=== PATIENT | male | born 1985 | race African-American/Black ===

== ENCOUNTER 2019-08-28 10:52 | Emergency (ER) | payer MEDICAID, OTHER ==
[~2019-08-28] VITALS: Ht 177.8 cm; Wt 113.0 kg
[2019-08-28 11:27] VITALS: BP 195/113
== END 2019-08-28 14:10 | disposition home or self-care (01) ==
LOC: ER 10:52
DX: H10.022 Other mucopurulent conjunctivitis, left eye (principal); J45.909 Unspecified asthma, uncomplicated
CPT/HCPCS: 99283

== ENCOUNTER 2023-07-06 08:51 | Emergency (ER) | payer OTHER ==
[~2023-07-06] VITALS: Ht 188 cm; Wt 114.0 kg
[2023-07-06 08:57] VITALS: TEMP 99.7; O2SAT 100
[2023-07-06] MEDS ORDERED: GABAPENTIN (08:57)
[2023-07-06] MEDS ORDERED: OXYCODONE HCL/ACETAMINOPHEN 5/325MG TABLET PO ONE (09:45)
[2023-07-06 10:15] LABS: CLARITY URINE CLOUDY (CLEAR); COLOR URINE YELLOW (YELLOW); GLUCOSE URINE NEGATIVE (NEGATIVE); KETONES URINE NEGATIVE (NEGATIVE); LEUKOCYTE ESTERASE URINE 3+ (NEGATIVE); NITRITE URINE NEGATIVE (NEGATIVE); OCCULT BLOOD URINE 3+ (NEGATIVE); PH URINE 8.5 (4.5-8.0); PROTEIN URINE 1+ (NEGATIVE); SPECIFIC GRAVITY URINE 1.012 (1.005-1.030)
[2023-07-06] MEDS ORDERED: CEFP200T13 MT (10:36)
[2023-07-06 10:39] LABS: BACTERIA URINE 2+; RBC URINE 25-50 /hpf (0-2); SQUAMOUS EPITHELIAL CELL URINE NONE SEEN /lpf (RARE/1+); WBC URINE TNTC /hpf (0-2); YEAST URINE NONE SEEN
[2023-07-06 12:30] VITALS: BP 122/70; PULSE 89; RESP 16
== END 2023-07-06 12:49 | disposition home or self-care (01) ==
LOC: ER 08:51
DX: N39.0 Urinary tract infection, site not specified (principal)
CPT/HCPCS: 81003; 87077; 87186; 99283

== ENCOUNTER 2025-02-17 10:30 | Emergency (ER) | payer MEDICAID, OTHER ==
[~2025-02-17] VITALS: Ht 182.9 cm; Wt 91.0 kg
[~2025-02-17 10:30] MED LIST: CEFP200T13 MT; GABAPENTIN
[2025-02-17 10:32] VITALS: O2SAT 99
[2025-02-17] MEDS: SODIUM CHLORIDE 0.9% (SEPSIS BOLUS) IV ONE (10:58)
[2025-02-17 11:21] LABS: BASOPHILS % 0.5 % (0.0-2.0); HEMATOCRIT. 38.3 % (42.0-52.0); HEMOGLOBIN. 12.7 g/dL (14.0-18.0); LYMPHOCYTES % 9.5 % (20.0-50.0); MEAN CORPUSCULAR HGB CONC 33.2 g/dL (31.0-37.0); MEAN CORPUSCULAR VOLUME 84.4 fL (80.0-94.0); MEAN PLATELET VOLUME 8.3 fl (7.4-10.4); MONOCYTES % 11.3 % (2.0-8.0); NEUTROPHILS % 77.7 % (40.0-76.0); PLATELET 196 x1000/uL (130-400); RED BLOOD CELL COUNT 4.54 mill/uL (4.7-6.1); RED CELL DISTRIBUTION WIDTH 16.3 % (11.6-14.6)
[2025-02-17 11:28] LABS: CHLORIDE 106 mEq/L (98-107); POTASSIUM 4.3 mEq/L (3.5-5.1); SODIUM 136 mEq/L (136-145)
[2025-02-17 11:31] LABS: CARBON DIOXIDE 26 mEq/L (21-32)
[2025-02-17 11:37] LABS: GLUCOSE 93 mg/dL (70-105); UREA NITROGEN BLOOD 10 mg/dL (9-23)
[2025-02-17 11:38] LABS: ALANINE AMINOTRANSFERASE 16 IU/L (10-49)
[2025-02-17 11:39] LABS: ALBUMIN 4.1 g/dL (3.2-4.8); ASPARTATE AMINOTRANSFERASE 19 IU/L (<34); BILIRUBIN DIRECT 0.2 mg/dL (<=3.0); BILIRUBIN TOTAL 0.5 mg/dL (0.1-1.0); PROTEIN TOTAL 7.8 g/dL (6.0-8.3)
[2025-02-17 11:56] LABS: TROPONIN I HIGH SENSITIVITY < 4 ng/L (3.0-53)
[2025-02-17 12:56] LABS: CLARITY URINE CLOUDY (CLEAR); COLOR URINE ORANGE (YELLOW); GLUCOSE URINE NEGATIVE (NEGATIVE); KETONES URINE NEGATIVE (NEGATIVE); LEUKOCYTE ESTERASE URINE 3+ (NEGATIVE); NITRITE URINE NEGATIVE (NEGATIVE); OCCULT BLOOD URINE 3+ (NEGATIVE); PH URINE 7.5 (4.5-8.0); PROTEIN URINE TRACE (NEGATIVE); SPECIFIC GRAVITY URINE 1.007 (1.005-1.030); UROBILINOGEN URINE 0.2 E.U./dL (0.2-1.0)
[2025-02-17 13:06] LABS: BACTERIA URINE 3+; RBC URINE 50-100 /hpf (0-2); SQUAMOUS EPITHELIAL CELL URINE 1+ /lpf (RARE/1+); WBC URINE TNTC /hpf (0-2); YEAST URINE NONE SEEN
[2025-02-17] MEDS: CEFTRIAXONE 1GM/50ML 50 ML IV ONE (15:37)
[2025-02-17 15:56] VITALS: BP 143/93; PULSE 109; RESP 20; TEMP 37.1; O2SAT 99
== END 2025-02-17 16:30 | disposition short-term general hospital (02) ==
LOC: ER 10:34
DX: N30.00 Acute cystitis without hematuria (principal); G35 Multiple sclerosis; J45.909 Unspecified asthma, uncomplicated; Z79.899 Other long term (current) drug therapy; Z79.60 Long term (current) use of unspecified immunomodulators and immunosuppressants
CPT/HCPCS: 80076; 80048; 81003; 83605; 85025; 87040; 87086; 87186; 84484; 87077; 36415; 84145; 71045; 93005; 96361; 96365; 99285; J0696; J7030; Z7610 ×2; A4606

== ENCOUNTER 2025-07-15 20:08 | Emergency (ER) | payer MEDICAID ==
[~2025-07-15] VITALS: Ht 177.8 cm; Wt 123.0 kg
[~2025-07-15 20:08] MED LIST changes: +BACL-141 PO; -CEFP200T13 MT; +GABA-1180 PO; -GABAPENTIN; +IRBE1TAB43 MT; +SULF1TAB48 MT; +TAMS-54 PO
[2025-07-15 20:11] VITALS: O2SAT 100
[2025-07-15] MEDS: SODIUM CHLORIDE 0.9% (SEPSIS BOLUS) IV ONE (20:58)
[2025-07-15] MEDS: MORPHINE SULFATE 4 MG/ML INJ (FOR IV/IM USE) IV ONE (21:04)
[2025-07-15] MEDS: PIPERACILLIN/TAZO 3.375G/50ML 50 ML IV ONE (21:08)
[2025-07-15 21:17] LABS: BASOPHILS % 1.1 % (0.0-2.0); EOSINOPHILS % 9.1 % (0.0-5.0); HEMATOCRIT. 30.4 % (42.0-52.0); HEMOGLOBIN. 9.8 g/dL (14.0-18.0); LYMPHOCYTES % 20.1 % (20.0-50.0); MEAN PLATELET VOLUME 7.1 fl (7.4-10.4); MONOCYTES % 14.3 % (2.0-8.0); NEUTROPHILS % 55.4 % (40.0-76.0); PLATELET 320 x1000/uL (130-400); RED BLOOD CELL COUNT 3.80 mill/uL (4.7-6.1); RED CELL DISTRIBUTION WIDTH 18.6 % (11.6-14.6)
[2025-07-15 21:27] LABS: INR 1.0
[2025-07-15 21:36] LABS: CREATININE 0.9 mg/dL (0.6-1.3)
[2025-07-15 21:37] LABS: UREA NITROGEN BLOOD 9 mg/dL (9-23)
[2025-07-15 21:39] LABS: ASPARTATE AMINOTRANSFERASE 19 IU/L (<34); BILIRUBIN DIRECT < 0.1 mg/dL (<=3.0); BILIRUBIN TOTAL 0.2 mg/dL (0.1-1.0); PROTEIN TOTAL 7.3 g/dL (6.0-8.3)
[2025-07-15] MEDS: VANCOMYCIN 1G PREMIX 200 ML IV ONE (21:53)
[2025-07-15] MEDS ORDERED: ACETAMINOPHEN 325MG TABLET PO PRN (22:15)
[2025-07-15] MEDS ORDERED: SODIUM CHLORIDE 0.9% 1,000 ML IV SCH (22:15)
[2025-07-15] MEDS ORDERED: CLONIDINE 0.1MG TABLET PO PRN (22:15)
[2025-07-15] MEDS ORDERED: MORPHINE SULFATE 4 MG/ML INJ (FOR IV/IM USE) IV PRN (22:15)
[2025-07-15] MEDS ORDERED: ZOLPIDEM TARTRATE 5MG TABLET PO PRN (22:15)
[2025-07-15] MEDS ORDERED: ONDANSETRON HCL 4MG/2ML INJ IV PRN (22:15)
[2025-07-15] MEDS ORDERED: MAGNESIUM/ALUMINUM HYDROXIDE/SIMETHICONE 30ML UDC PO PRN (22:15)
[2025-07-15] MEDS ORDERED: HYDROCODONE/ACETAMINOPHEN 5/325MG TABLET PO PRN (22:15)
[2025-07-15 22:39] VITALS: TEMP 37.2
[2025-07-15] MEDS: VANCOMYCIN 1G PREMIX 200 ML IV NR (23:44)
[2025-07-16 00:17] VITALS: BP 143/87; PULSE 113; RESP 14; O2SAT 98
[2025-07-16 00:38] LABS: CLARITY URINE TURBID (CLEAR); COLOR URINE YELLOW (YELLOW); GLUCOSE URINE NEGATIVE (NEGATIVE); KETONES URINE NEGATIVE (NEGATIVE); LEUKOCYTE ESTERASE URINE NEGATIVE (NEGATIVE); NITRITE URINE NEGATIVE (NEGATIVE); OCCULT BLOOD URINE NEGATIVE (NEGATIVE); PH URINE 6.0 (4.5-8.0); PROTEIN URINE NEGATIVE (NEGATIVE); SPECIFIC GRAVITY URINE 1.031 (1.005-1.030); UROBILINOGEN URINE 0.2 E.U./dL (0.2-1.0)
[2025-07-16 00:56] LABS: *AMPHETAMINES SCREEN URINE NEGATIVE (NEGATIVE); *BARBITURATES SCREEN URINE NEGATIVE (NEGATIVE); *BENZODIAZEPINES SCREEN URINE NEGATIVE (NEGATIVE); *COCAINE SCREEN URINE NEGATIVE (NEGATIVE); CANNABINOID URINE SCREEN PRESUMPTIVE POSITIVE (NEGATIVE); ECSTASY MDMA SCREEN URINE NEGATIVE (NEGATIVE); METHADONE URINE SCREEN NEGATIVE (NEGATIVE); OPIATES URINE SCREEN PRESUMPTIVE POSITIVE (NEGATIVE); PHENCYCLIDINE URINE SCREEN NEGATIVE (NEGATIVE)
[2025-07-16 01:21] LABS: BACTERIA URINE NONE SEEN; RBC URINE 0-2 /hpf (0-2); SQUAMOUS EPITHELIAL CELL URINE FEW /lpf (RARE/1+); WBC URINE 0-2 /hpf (0-2)
[2025-07-16] MEDS ORDERED: PIPERACILLIN/TAZO 3.375G/50ML 50 ML IV SCH (06:00)
[2025-07-16] MEDS ORDERED: ENOXAPARIN 30MG/0.3ML SYR SUBCUT SCH (09:00)
[2025-07-16] MEDS ORDERED: PANTOPRAZOLE SODIUM 40 MG/VIAL IV SCH (09:00)
== END 2025-07-16 00:53 | disposition short-term general hospital (02) ==
LOC: ER 20:08 → EDBEDREQ 21:53 → EDBEDREQTM 21:53 → ER 07-16 00:53 → CMPBEDREQ 07-17 07:22
DX: A41.9 Sepsis, unspecified organism (principal); M79.661 Pain in right lower leg; I10 Essential (primary) hypertension; J45.909 Unspecified asthma, uncomplicated; Z79.899 Other long term (current) drug therapy
CPT/HCPCS: 99291; 96365; 96366; 71045; 96367; 96375; 80076; 80048; 83605; 85025; 85610; 87040; 36415; 84145; 93005; 80305; 87086; 81003; J2543; J3373; J2270; J7030

== ENCOUNTER 2025-08-01 18:06 | Inpatient (IN) | payer MEDICAID ==
[~2025-08-01] VITALS: Ht 167.6 cm; Wt 150.6 kg
[2025-08-01 18:12] VITALS: O2SAT 99
[2025-08-01] MEDS: SODIUM CHLORIDE 0.9% (SEPSIS BOLUS) IV ONE (20:06)
[2025-08-01 20:11] LABS: BASOPHILS % 0.8 % (0.0-2.0); EOSINOPHILS % 3.0 % (0.0-5.0); HEMATOCRIT. 32.2 % (42.0-52.0); HEMOGLOBIN. 10.2 g/dL (14.0-18.0); LYMPHOCYTES % 7.9 % (20.0-50.0); MEAN PLATELET VOLUME 7.7 fl (7.4-10.4); MONOCYTES % 7.3 % (2.0-8.0); NEUTROPHILS % 81.0 % (40.0-76.0); PLATELET 317 x1000/uL (130-400); RED BLOOD CELL COUNT 4.10 mill/uL (4.7-6.1); RED CELL DISTRIBUTION WIDTH 18.8 % (11.6-14.6)
[2025-08-01 20:21] LABS: INR 1.1
[2025-08-01 20:22] LABS: CREATININE 1.0 mg/dL (0.6-1.3); UREA NITROGEN BLOOD 9 mg/dL (9-23)
[2025-08-01 20:23] LABS: TROPONIN I HIGH SENSITIVITY < 4 ng/L (3.0-53)
[2025-08-01 20:24] LABS: ASPARTATE AMINOTRANSFERASE 18 IU/L (<34); BILIRUBIN DIRECT 0.2 mg/dL (<=3.0)
[2025-08-01 20:25] LABS: BILIRUBIN TOTAL 0.5 mg/dL (0.1-1.0); PROTEIN TOTAL 8.0 g/dL (6.0-8.3)
[2025-08-01] MEDS: PIPERACILLIN/TAZO 3.375G/50ML 50 ML IV ONE (20:25)
[2025-08-01] MEDS: MORPHINE SULFATE 4 MG/ML INJ (FOR IV/IM USE) IV ONE (20:41)
[2025-08-01] MEDS: VANCOMYCIN 1G PREMIX 200 ML IV ONE (21:01)
[2025-08-01] MEDS ORDERED: MORPHINE SULFATE 4 MG/ML INJ (FOR IV/IM USE) IV ONE (21:30)
[2025-08-01 23:46] LABS: CLARITY URINE CLEAR (CLEAR); COLOR URINE YELLOW (YELLOW); GLUCOSE URINE NEGATIVE (NEGATIVE); KETONES URINE 1+ (NEGATIVE); LEUKOCYTE ESTERASE URINE NEGATIVE (NEGATIVE); NITRITE URINE NEGATIVE (NEGATIVE); OCCULT BLOOD URINE NEGATIVE (NEGATIVE); PH URINE 7.5 (4.5-8.0); PROTEIN URINE NEGATIVE (NEGATIVE); SPECIFIC GRAVITY URINE 1.050 (1.005-1.030); UROBILINOGEN URINE 0.2 E.U./dL (0.2-1.0)
[2025-08-01] MEDS: MORPHINE SULFATE 4 MG/ML INJ (FOR IV/IM USE) IV NR (23:55)
[2025-08-02 01:21] VITALS: BP 156/89; PULSE 127; RESP 20; TEMP 38.1416
[2025-08-02 01:34] VITALS: BP 156/89; PULSE 127; RESP 20; TEMP 38.1
[2025-08-02] MEDS: BACLOFEN 10MG TABLET PO SCH (05:42)
[2025-08-02] MEDS: GABAPENTIN 300MG CAPSULE PO SCH (05:42)
[2025-08-02] MEDS: VANCOMYCIN 1.25GM/250ML IV SCH (05:43)
[2025-08-02] MEDS: PIPERACILLIN/TAZO 3.375G/50ML 50 ML IV SCH (05:43)
[2025-08-02] MEDS ORDERED: IOHEXOL-350 100 ML BOTTLE ONE (05:53)
[2025-08-02 08:00] VITALS: BP 124/61; RESP 20; TEMP 36.2; O2SAT 100
[2025-08-02] MEDS: ENOXAPARIN 40MG/0.4ML SYR SUBCUT SCH (09:48)
[2025-08-02] MEDS: CARVEDILOL 6.25 MG TABLET PO SCH (09:48)
[2025-08-02] MEDS: TAMSULOSIN HCL 0.4MG SR CAPSULE PO SCH (09:48)
[2025-08-02] MEDS: LOSARTAN 50 MG TABLET PO SCH (09:49)
[2025-08-02 11:51] LABS: PLATELET 286 x1000/uL (130-400); RED BLOOD CELL COUNT 3.85 mill/uL (4.7-6.1); RED CELL DISTRIBUTION WIDTH 18.9 % (11.6-14.6)
[2025-08-02 12:00] VITALS: BP 120/67; PULSE 106; RESP 20; TEMP 36.7; O2SAT 100
[2025-08-02 12:03] LABS: CREATININE 0.8 mg/dL (0.6-1.3)
[2025-08-02 12:04] LABS: UREA NITROGEN BLOOD 6 mg/dL (9-23)
[2025-08-02 16:00] VITALS: BP 131/87; PULSE 109; RESP 20; TEMP 36.5; O2SAT 99
[2025-08-02] MEDS: HYDROCODONE/ACETAMINOPHEN 10/325MG TABLET PO PRN (19:55)
[2025-08-02 20:07] VITALS: BP 126/73; PULSE 107; RESP 18; TEMP 36.6; O2SAT 98
[2025-08-02] MEDS: ATORVASTATIN CALCIUM 20MG TABLET PO SCH (21:50)
[2025-08-03 00:18] VITALS: BP 117/72; PULSE 100; RESP 18; TEMP 36.4; O2SAT 99
[2025-08-03 04:36] VITALS: BP 130/73; PULSE 102; RESP 18; TEMP 36.6; O2SAT 100
[2025-08-03 05:07] LABS: CREATININE 0.8 mg/dL (0.6-1.3); UREA NITROGEN BLOOD 6 mg/dL (9-23)
[2025-08-03 08:00] VITALS: BP 128/92; PULSE 101; RESP 18; TEMP 36.5; O2SAT 99
[2025-08-03] MEDS ORDERED: AMOX1TAB16 MT (11:05)
[2025-08-03] MEDS ORDERED: SULF1TAB48 MT (11:05)
[2025-08-03 12:00] VITALS: BP 145/84; PULSE 101; RESP 20; TEMP 36.3; O2SAT 100
[2025-08-03 16:00] VITALS: BP 150/94; PULSE 106; RESP 20; TEMP 36.7; O2SAT 99
[2025-08-03 20:00] VITALS: BP 133/81; PULSE 104; RESP 20; TEMP 36.8; O2SAT 99
[2025-08-04] MEDS ORDERED: NALOXONE HCL 0.4MG/ML VIAL IV PRN (03:15)
[2025-08-04 04:00] VITALS: BP 139/84; PULSE 93; RESP 18; TEMP 36.6; O2SAT 99
[2025-08-04 08:00] VITALS: BP 133/73; PULSE 94; RESP 18; TEMP 36.3; O2SAT 100
[2025-08-04 12:00] VITALS: BP 129/94; PULSE 91; RESP 14; TEMP 36.3; O2SAT 100
[2025-08-04 16:00] VITALS: BP 117/74; PULSE 92; RESP 16; TEMP 36.2; O2SAT 100
[2025-08-04 20:00] VITALS: BP 124/74; PULSE 66; RESP 19; TEMP 36.8; O2SAT 99
[2025-08-04] MEDS: MEROPENEM 1G/100ML IV SCH (20:36)
[2025-08-05] VITALS: BP 135/58; PULSE 74; RESP 19; TEMP 36.7; O2SAT 99
[2025-08-05 04:00] VITALS: BP 150/87; PULSE 81; RESP 18; TEMP 37.1; O2SAT 99
[2025-08-05 08:00] VITALS: BP 149/83; PULSE 92; RESP 18; TEMP 36.7; O2SAT 99
[2025-08-05 16:00] VITALS: BP 136/70; PULSE 114; RESP 18; TEMP 36.4; O2SAT 99
[2025-08-05 20:00] VITALS: BP 129/70; PULSE 105; RESP 20; TEMP 36.7; O2SAT 99
[2025-08-05 22:07] LABS: HEMATOCRIT. 33.2 % (42.0-52.0); HEMOGLOBIN. 10.6 g/dL (14.0-18.0); MEAN PLATELET VOLUME 7.4 fl (7.4-10.4); PLATELET 323 x1000/uL (130-400); RED BLOOD CELL COUNT 4.23 mill/uL (4.7-6.1); RED CELL DISTRIBUTION WIDTH 18.8 % (11.6-14.6)
[2025-08-05 22:16] LABS: CREATININE 0.7 mg/dL (0.6-1.3); UREA NITROGEN BLOOD 5 mg/dL (9-23)
[2025-08-05 22:33] LABS: EOSINOPHILS % MANUAL 11.0 % (0.0-5.0); LYMPHOCYTES % MANUAL 27.0 % (20.0-50.0); MONOCYTES % MANUAL 13.0 % (2.0-8.0); NEUTROPHILS % MANUAL 49.0 % (45.0-75.0); PLATELET ESTIMATE NORMAL
[2025-08-06] VITALS: BP 129/82; PULSE 93; RESP 20; TEMP 36.3; O2SAT 96
[2025-08-06 04:00] VITALS: BP 99/51; PULSE 67; RESP 17; TEMP 36.4; O2SAT 100
[2025-08-06 08:00] VITALS: BP 155/82; PULSE 85; RESP 18; TEMP 36.4; O2SAT 100
[2025-08-06 10:31] LABS: HEMATOCRIT. 32.4 % (42.0-52.0); HEMOGLOBIN. 10.3 g/dL (14.0-18.0); MEAN PLATELET VOLUME 7.4 fl (7.4-10.4); PLATELET 300 x1000/uL (130-400); RED BLOOD CELL COUNT 4.08 mill/uL (4.7-6.1); RED CELL DISTRIBUTION WIDTH 18.6 % (11.6-14.6)
[2025-08-06 10:46] LABS: CREATININE 0.9 mg/dL (0.6-1.3); UREA NITROGEN BLOOD 6 mg/dL (9-23)
[2025-08-06 12:00] VITALS: BP 145/81; PULSE 78; RESP 19; TEMP 36.4; O2SAT 99
[2025-08-06 16:00] VITALS: BP 138/77; PULSE 99; RESP 18; TEMP 36.4; O2SAT 99
[2025-08-06 17:23] LABS: EOSINOPHILS % MANUAL 7.0 % (0.0-5.0); LYMPHOCYTES % MANUAL 19.0 % (20.0-50.0); METAMYELOCYTES % 1.0 % (0-0); MONOCYTES % MANUAL 14.0 % (2.0-8.0); MYELOCYTES % 1.0 % (0-0); NEUTROPHILS % MANUAL 58.0 % (45.0-75.0); PLATELET ESTIMATE NORMAL
[2025-08-06 20:00] VITALS: BP 150/82; PULSE 81; RESP 20; TEMP 36.7; O2SAT 96
[2025-08-07] VITALS: BP 133/76; PULSE 104; RESP 17; TEMP 37.2; O2SAT 99
[2025-08-07 04:00] VITALS: BP 141/78; PULSE 104; RESP 20; TEMP 36.7; O2SAT 97
[2025-08-07 08:00] VITALS: BP 157/89; PULSE 104; RESP 18; TEMP 36.3; O2SAT 99
[2025-08-07 08:24] LABS: BASOPHILS % 0.9 % (0.0-2.0); EOSINOPHILS % 7.0 % (0.0-5.0); HEMATOCRIT. 31.9 % (42.0-52.0); HEMOGLOBIN. 10.3 g/dL (14.0-18.0); LYMPHOCYTES % 15.2 % (20.0-50.0); MEAN PLATELET VOLUME 7.6 fl (7.4-10.4); MONOCYTES % 14.7 % (2.0-8.0); NEUTROPHILS % 62.2 % (40.0-76.0); PLATELET 309 x1000/uL (130-400); RED BLOOD CELL COUNT 4.09 mill/uL (4.7-6.1); RED CELL DISTRIBUTION WIDTH 18.6 % (11.6-14.6)
[2025-08-07 08:34] LABS: CREATININE 0.8 mg/dL (0.6-1.3); UREA NITROGEN BLOOD 5 mg/dL (9-23)
[2025-08-07] MEDS: HYDROCODONE/ACETAMINOPHEN 10/325MG TABLET PO PRN (10:55)
[2025-08-07] MEDS ORDERED: LIDOCAINE HCL 1% 10 MG/ML 10ML VIAL ONE (11:13)
[2025-08-07 12:00] VITALS: BP 118/72; PULSE 94; RESP 19; TEMP 36.7; O2SAT 91
[2025-08-07 16:00] VITALS: BP 133/84; PULSE 99; RESP 19; TEMP 36.7; O2SAT 100
[2025-08-07] MEDS: VANCOMYCIN 1.25GM/250ML IV SCH (16:16)
[2025-08-07 20:00] VITALS: BP 119/80; PULSE 100; RESP 18; TEMP 37.1; O2SAT 97
[2025-08-08 08:00] VITALS: BP 156/87; PULSE 93; RESP 20; TEMP 36.7; O2SAT 100
[2025-08-08 08:36] LABS: HEMATOCRIT. 31.7 % (42.0-52.0); HEMOGLOBIN. 10.1 g/dL (14.0-18.0); MEAN PLATELET VOLUME 7.7 fl (7.4-10.4); PLATELET 291 x1000/uL (130-400); RED BLOOD CELL COUNT 4.06 mill/uL (4.7-6.1); RED CELL DISTRIBUTION WIDTH 18.9 % (11.6-14.6)
[2025-08-08 09:01] LABS: CREATININE 0.8 mg/dL (0.6-1.3); UREA NITROGEN BLOOD 7 mg/dL (9-23)
[2025-08-08 09:02] LABS: VANCOMYCIN TROUGH 14.4 ug/mL (5.0-10.0)
[2025-08-08 12:00] VITALS: BP 125/81; PULSE 96; RESP 19; TEMP 36.7; O2SAT 100
[2025-08-08 16:00] VITALS: BP 134/83; PULSE 95; RESP 20; TEMP 36.8; O2SAT 100
[2025-08-08 17:02] LABS: EOSINOPHILS % MANUAL 7.0 % (0.0-5.0); LYMPHOCYTES % MANUAL 19.0 % (20.0-50.0); MONOCYTES % MANUAL 15.0 % (2.0-8.0); NEUTROPHILS % MANUAL 59.0 % (45.0-75.0); PLATELET ESTIMATE NORMAL
[2025-08-08 20:00] VITALS: BP 115/80; PULSE 108; RESP 19; TEMP 36.3; O2SAT 100
[2025-08-08] MEDS: DOCUSATE SODIUM 250MG CAPSULE PO SCH (22:13)
[2025-08-09] VITALS: BP 136/83; PULSE 96; RESP 16; TEMP 36.4; O2SAT 100
[2025-08-09 04:00] VITALS: BP 110/73; PULSE 107; RESP 17; TEMP 37.2; O2SAT 100
[2025-08-09 08:00] VITALS: BP 132/81; PULSE 108; RESP 19; TEMP 36.4; O2SAT 98
[2025-08-09 12:00] VITALS: BP 134/64; PULSE 103; RESP 18; TEMP 36.6; O2SAT 99
[2025-08-09 16:00] VITALS: BP 131/75; PULSE 105; RESP 18; TEMP 36.6; O2SAT 97
[2025-08-09 20:00] VITALS: BP 130/82; PULSE 99; RESP 20; TEMP 36.1; O2SAT 99
[2025-08-10 04:00] VITALS: BP 132/70; PULSE 98; RESP 20; TEMP 36.2; O2SAT 98
[2025-08-10 08:00] VITALS: BP 134/78; PULSE 97; RESP 16; TEMP 37.1; O2SAT 95
[2025-08-10 12:00] VITALS: BP 120/73; PULSE 95; RESP 18; TEMP 37.5; O2SAT 97
[2025-08-10 16:00] VITALS: BP 118/68; PULSE 108; RESP 20; TEMP 37.2; O2SAT 97
[2025-08-10 20:00] VITALS: BP 125/72; PULSE 107; RESP 20; TEMP 36.2; O2SAT 100
[2025-08-11] VITALS: BP 117/69; PULSE 98; RESP 20; TEMP 36.4; O2SAT 99
[2025-08-11 04:00] VITALS: BP 132/79; PULSE 103; RESP 20; TEMP 36.3; O2SAT 100
[2025-08-11 08:00] VITALS: BP 129/84; PULSE 105; RESP 19; TEMP 36.4; O2SAT 100
[2025-08-11 11:44] VITALS: BP 129/84; PULSE 105; RESP 18; TEMP 97.6
== END 2025-08-11 16:08 | disposition home health service (06) | DRG 207 ==
LOC: ER 18:06 → 7WST 21:30 → EDBEDREQTM 21:32 → EDBEDREQ 21:32 → ENRESERV 22:50 → 6EST 08-04 03:05
PROVIDERS: ADMIT Internal Medicine; ATTEND Internal Medicine
PROC: 02HV33Z Insertion of Infusion Device into Superior Vena Cava, Percutaneous Approach (ICD-10-PCS; principal; 2025-08-07)
PROC: B548ZZA Ultrasonography of Superior Vena Cava, Guidance (ICD-10-PCS; 2025-08-07)
DX: I87.8 Other specified disorders of veins (principal); L97.818 Non-pressure chronic ulcer of other part of right lower leg with other specified severity; Z68.43 Body mass index [BMI] 50.0-59.9, adult; I10 Essential (primary) hypertension; K76.9 Liver disease, unspecified; J45.909 Unspecified asthma, uncomplicated; E66.01 Morbid (severe) obesity due to excess calories; L98.499 Non-pressure chronic ulcer of skin of other sites with unspecified severity; G35.D Multiple sclerosis, unspecified; I89.0 Lymphedema, not elsewhere classified; Z79.899 Other long term (current) drug therapy
CPT/HCPCS: 36415; 36573; 71045; 71275; 80048; 80076; 80202; 81003; 83605; 84145; 84484; 85025; 85027; 85379; 93005; 93970; 96365; 96367; 96375; 97162; 97166; 97530; 99291; A4606; A6449; C1725; J1650; J2003; J2185; J2270; J2543; J3373; J7030; Q9967